=== PATIENT | female | born 1995 | race Hispanic/Latino ===

== ENCOUNTER 2019-07-19 07:50 | Day surgery (SDC) | payer OTHER ==
[~2019-07-19] VITALS: Ht 157.5 cm; Wt 47.6 kg
--- NOTE | ~2019-07-19 | OR ---
[facility] [address] [place] [id number] Draft DATE OF OPERATION: 07/19/2019 SURGEON: Michael Linares DO PREOPERATIVE DIAGNOSES: 1. Dysmenorrhea. 2. Dyspareunia. POSTOPERATIVE DIAGNOSES: 1. Dysmenorrhea. 2. Dyspareunia. 3. Deep infiltrating endometriosis of the pelvic peritoneum. PROCEDURES PERFORMED: Laparoscopic excision of endometriosis. WOODWORKING SHOP HAND: Justice Wing MD. ANESTHESIA: General. ESTIMATED BLOOD LOSS: 5 mL. SPECIMENS: Endometriosis of the pelvic peritoneum. FINDINGS: Normal external genitalia with normal vagina and cervix. IUD strings noted 4 cm in length emerging from the cervical os. On laparoscopy, normal right upper quadrant. In the pelvis, there was scattered endometriosis of the cul-de-sac, the right pelvic sidewall near the uterus, left pelvic sidewall, and ovarian fossa. These represented a variety of powder burn and red lesions. The left pelvic sidewall implant was noted to be deep infiltrating. Hemostasis at the end of the procedure and again, all endometriosis was excised. COMPLICATIONS: None. PATIENT NAME: RICARDO BLANCHARD OPERATIVE REPORT DATE OF : [birth year] REPORT #: [id number] PHYSICIAN: MICHAEL LINARES DO PCP: NAYELI HILL PAC REPORT IS CONFIDENTIAL AND NOT TO BE RELEASED WITHOUT AUTHORIZATION [facility] [address] [place] [id number] Draft INDICATIONS: Ms. Chang is a pleasant 23-year-old female, who presents for a long history of dysmenorrhea since menarche as well as dyspareunia. On exam, she was noted to have multifactorial causes of her pelvic pain including vestibulitis, likely interstitial cystitis and pelvic floor spasm, and I felt there was likely to be a component of endometriosis. We recommended diagnostic laparoscopy, which the patient accepted. We reviewed risks, benefits, and alternatives in detail with the patient. The patient understands and wished to proceed with the procedure. TECHNIQUE: The patient was taken to the operating room. Time-out was performed to confirm correct patient and correct procedure. General anesthesia was adequately established. The patient was prepped and draped in the dorsal lithotomy position with her feet in Yellofin stirrups. ICPs were on and running and no preoperative antibiotics or heparin were indicated. A weighted speculum was placed in vagina and the anterior lip of the cervix was grasped with an Allis clamp. IUD strings were noted emerging from the cervical os. The cervix was gently dilated using Hegar dilators and a Hulka uterine manipulator was placed. A Lowe catheter was inserted. Attention was turned to the base of the umbilicus. The umbilicus was infiltrated with 0.25% Marcaine with epinephrine and a 5 mm incision was made. Direct visual entry was made into the abdomen without complication and low opening pressures noted. Survey of the abdomen and pelvis was performed and decision was made to place additional assist ports in the left lower, right lower and midline suprapubic. These were all 5 mm assist ports made under direct visualization without complication. Moderate endometriosis was noted and it was felt that it could be excised safely. Endometrial implants were grasped with [place] graspers and the peritoneum tented. The peritoneum was nicked with laparoscopic jennifer and the peritoneum was undermined. Careful attention was paid to surrounding anatomy and peritoneal implants were removed easily without significant bleeding or complications. The most significant lesion was in the left pelvic sidewall. It was grasped with [place] and elevated. The ureter was noted to be away from the lesion and the total course of the ureter was followed. The peritoneum again was nicked with jennifer and the peritoneum was undermined. The endometriosis was noted to be deep infiltrating and careful blunt dissection was performed and endometriosis lesion was able to be excised in total. A very small peritoneal vessel was noted to be bleeding and this was grasped with [place] grasper, elevated and sealed with a very short burst of monopolar energy. Once all peritoneal endometriosis implants were excised, the pelvis was irrigated. Tisseel was applied to the excision sites and good hemostasis was appreciated. Pneumoperitoneum was reduced. The trocars were removed. Trocar sites were repaired with 4-0 Monocryl with good hemostasis appreciated. The hook was removed. The patient was taken to PACU in good and stable condition. Sponge, needle, and instrument count was correct x2 at the end of procedure. PATIENT NAME: RICARDO BLANCHARD OPERATIVE REPORT DATE OF : [birth year] REPORT #: [id number] PHYSICIAN: MICHAEL LINARES DO PCP: NAYELI HILL PAC REPORT IS CONFIDENTIAL AND NOT TO BE RELEASED WITHOUT AUTHORIZATION [facility] [address], [place] [address] Draft Mecca was present and participated in all portions of procedure. DO RAJAT Zhang/ROBERT /[id number] Copies: ~ PATIENT NAME: RICARDO BLANCHARD OPERATIVE REPORT DATE OF : [birth year] REPORT #: [id number] PHYSICIAN: MICHAEL LINARES DO PCP: NAYELI HILL PAC REPORT IS CONFIDENTIAL AND NOT TO BE RELEASED WITHOUT AUTHORIZATION
--- NOTE | 2019-07-19 11:46 | NUR ---
07/19/19 1146 Liz Castro 1133- PT ARRIVES TO PACU AROUSABLE TO VOICE. FALLS INSTANTLY TO SLEEP WHEN NOT BEING TALKED TO. RESP EVEN AND UNLABORED. OXYGEN SAT HIGH 90'S TO 100% ON 8L VIA MASK. 1137- OXYGEN TITRATED OFF. 1140- PT GIVEN WARM BLANKETS AND THE SANTI PAWS WARMER TURNED ON PT REPORTS SHE IS COLD AND IS SHAKING. 1142- DR. AREVALO AT THE BEDSIDE TO TALK WITH THE PT.
[2019-07-19] MEDS ORDERED: NORCO 5-325 TA1 EACH PO (13:33)
[2019-07-19] MEDS ORDERED: IBU800 MG PO (13:35)
== END 2019-07-19 14:05 | disposition home or self-care (01) ==
LOC: DS 07:50 → OPS 07:50 → DS 08:30 → OPS 14:05
PROVIDERS: Obstetrics & Gynecology
PROC: 0UBF4ZZ Excision of Cul-de-sac, Percutaneous Endoscopic Approach (ICD-10-PCS; principal; 2019-07-19 08:30)
DX: N80.3 Endometriosis of pelvic peritoneum (principal); N94.6 Dysmenorrhea, unspecified; N94.10 Unspecified dyspareunia; F41.0 Panic disorder [episodic paroxysmal anxiety]; F12.90 Cannabis use, unspecified, uncomplicated; Z79.899 Other long term (current) drug therapy
CPT/HCPCS: J0330; J1100; J1885; J2250; J2405; J2704; J3010; J7120; J7121